=== PATIENT | female | born 1945 | race Caucasian/White ===

== ENCOUNTER 2017-12-20 10:53 | Emergency (ER) | payer OTHER ==
[~2017-12-20] VITALS: Ht 162.6 cm; Wt 75.0 kg
[~2017-12-20 10:53] MED LIST: ACID REDUCER150 MG PO; AMBIEN5 MG PO; ATIVAN0.5 MG PO; DECADRON4 MG PO; DIPHENHYDRAMINE50 M1 PO; LEVEMIR100 UNIT/2 SC; MULTIVITAMIN1 EAC2 PO; NOVOLOG PE100 UNITS/ SC; PANTOPRAZOLE SO20 MG PO; PRAVACHOL80 MG PO; TYLENOL EXTRA500 MG PO; ZESTRIL10 MG PO; ZOLOFT50 MG PO
[2017-12-20] MEDS ORDERED: PERCOCET 5/31 TABLET PO (13:23)
[2017-12-20 13:50] VITALS: BP 180/89
== END 2017-12-20 13:52 | disposition home or self-care (01) ==
LOC: EME 10:53
DX: S02.2XXA Fracture of nasal bones, initial encounter for closed fracture (principal); S42.92XA Fracture of left shoulder girdle, part unspecified, initial encounter for closed fracture; S09.90XA Unspecified injury of head, initial encounter; M25.561 Pain in right knee; W01.0XXA Fall on same level from slipping, tripping and stumbling without subsequent striking against object, initial encounter; Y99.0 Civilian activity done for income or pay; I10 Essential (primary) hypertension; E78.5 Hyperlipidemia, unspecified; E11.9 Type 2 diabetes mellitus without complications; F32.9 Major depressive disorder, single episode, unspecified; Z85.3 Personal history of malignant neoplasm of breast; Z92.21 Personal history of antineoplastic chemotherapy; Z87.891 Personal history of nicotine dependence; Z79.4 Long term (current) use of insulin; Z88.5 Allergy status to narcotic agent
CPT/HCPCS: 70450; 70486; 73030; 73564; 73630; 99281; 99284